=== PATIENT | female | born 1965 | race Caucasian/White ===

== ENCOUNTER 2017-01-23 09:15 | Outpatient (RCR) | payer MEDICARE, OTHER ==
[~2017-01-23 09:15] MED LIST: AMITIZA 8MCG8 MCG PO; AMOXICILLIN875 MG PO; AMPYRA PO; BIRTH; CEFTIN 250250 MG/TAB PO; CYMBALTA 30MG30 MG PO; FLUOXETINE PO; GABAPENTIN PO; IMURAN 50MG TAB50 MG PO; IRON250 MG PO; LEVAQUIN 5500 MG/TA1 PO; LOMOTIL 0.025 M1 TAB PO; MACROBID 1100 MG/CAP PO; NORCO 325 MG-51 TAB PO; OMNICEF 300MG300 MG PO; PREMARIN .3MG0.3 MG PO; PREMARIN0.625 MG PO; PRILOSEC 20MG20 MG PO; PRILOSEC10 MG PO; PROVIGIL200 MG PO; PROZAC 20MG20 MG PO; REGLAN 10MG10 MG/TAB PO; SANCTURA PO; SANTURA PO; SEPTRA DS 8001 TAB PO; TOVIAZ8 MG PO; TRAZODONE150 MG PO; TYSABRI IV; TYSABRI20 MG/ML IV; VITAMIN D50000 I1 PO; WELLBUTRIN PO; XANAX0.25 MG PO; ZOFRAN 4MG T4 MG/TAB PO; ZOFRAN4 MG PO; [UNRECOGNIZED DRUG - REMARK]
== END 2017-02-03 | disposition still patient (30) ==
LOC: WSPT
DX: G35 Multiple sclerosis (principal)
CPT/HCPCS: G8978-GP; G8979-GP; G8987-GO; G8988-GO

== ENCOUNTER 2017-02-10 08:00 | Outpatient (RCR) | payer MEDICARE, OTHER | END 2017-02-12 08:16 | LOC: WSPT 08:00 | DX: G35 Multiple sclerosis (principal) | CPT/HCPCS: G8979-GP; G8980-GP ==

== ENCOUNTER → 2017-03-19 | Outpatient (CLI) | payer MEDICARE, OTHER | LOC: MC.RAD 09:32 | DX: Z12.31 Encounter for screening mammogram for malignant neoplasm of breast (principal); N64.89 Other specified disorders of breast ==

== ENCOUNTER 2017-06-10 11:18 | Day surgery (SDC) | payer MEDICARE, OTHER ==
[2005-07-12 15:37] VITALS: BP 127/84
[~2017-06-10] VITALS: Ht 157.5 cm; Wt 89.6 kg
[2017-06-10] MEDS ORDERED: PROZAC 20MG20 MG PO (11:51)
[2017-06-10] MEDS ORDERED: LEVSIN0.125 M1 PO (11:53)
[2017-06-10] MEDS ORDERED: IMURAN 50MG TAB50 MG PO (12:02)
[2017-06-10] MEDS ORDERED: ESTRACE2 MG PO (12:03)
[2017-06-10] MEDS ORDERED: XANAX .25M0.25 MG/TA PO (12:03)
[2017-06-10] MEDS ORDERED: DESYREL DIVIDO150 M1 PO (12:04)
[2017-06-10] MEDS ORDERED: NEURONTIN800 MG/TAB PO (12:04)
[2017-06-10] MEDS ORDERED: PROAIR HFA0.09 MG/AC IH (12:07)
[2017-06-10] MEDS ORDERED: FLONASEALLERGY NS (12:07)
[2017-06-10] MEDS ORDERED: 00186-0372-20 IH (12:08)
[2017-06-10 12:14] VITALS: BP 112/79; PULSE 64; TEMP 97.8
[2017-06-10] MEDS ORDERED: MIRALAX PA17 GM/Dose PO (13:47)
[2017-06-10 14:04] VITALS: BP 118/63; PULSE 66; TEMP 97.7
[2017-06-10] MEDS ORDERED: PRIL40 PO (14:12)
[2017-06-10 14:15] VITALS: BP 116/56; PULSE 61
[2017-06-10 14:30] VITALS: BP 107/55; PULSE 56
[2017-06-10 14:45] VITALS: BP 114/66; PULSE 55
[2017-06-10 15:09] VITALS: BP 129/68; PULSE 68
== END 2017-06-10 15:10 | disposition home or self-care (01) ==
LOC: SDCO 11:18
DX: K29.70 Gastritis, unspecified, without bleeding (principal); R10.84 Generalized abdominal pain; K21.9 Gastro-esophageal reflux disease without esophagitis; K58.1 Irritable bowel syndrome with constipation; J45.909 Unspecified asthma, uncomplicated; R19.5 Other fecal abnormalities; G47.30 Sleep apnea, unspecified; F41.9 Anxiety disorder, unspecified; F32.9 Major depressive disorder, single episode, unspecified
CPT/HCPCS: OP; J2250; J2405; J3010; J7120

== ENCOUNTER → 2018-01-22 | Outpatient (CLI) | payer MEDICARE, OTHER ==
[~2018-01-22] MED LIST changes: +00186-0372-20 IH; +DESYREL DIVIDO150 M1 PO; +ESTRACE2 MG PO; +FLONASEALLERGY NS; +LEVSIN0.125 M1 PO; +MIRALAX PA17 GM/Dose PO; +NEURONTIN800 MG/TAB PO; +PRIL40 PO; +PROAIR HFA0.09 MG/AC IH; +XANAX .25M0.25 MG/TA PO
== END ==
LOC: COL.VAS 14:12
DX: M79.661 Pain in right lower leg (principal)

== ENCOUNTER → 2018-03-27 | Outpatient (CLI) | payer MEDICARE, OTHER | LOC: MC.RAD 10:16 | DX: N64.4 Mastodynia (principal) | CPT/HCPCS: G0279 ==

== ENCOUNTER → 2019-03-29 | Outpatient (CLI) | payer MEDICARE, OTHER | LOC: MC.RAD 09:57 | DX: Z12.31 Encounter for screening mammogram for malignant neoplasm of breast (principal) ==

== ENCOUNTER → 2019-06-04 | Outpatient (CLI) | payer MEDICARE, OTHER | LOC: COL.VAS 09:25 | DX: Z13.6 Encounter for screening for cardiovascular disorders (principal); Z96.652 Presence of left artificial knee joint; M79.89 Other specified soft tissue disorders ==

== ENCOUNTER → 2020-03-30 | Outpatient (CLI) | payer MEDICARE, OTHER | LOC: MC.RAD 10:20 | DX: Z12.31 Encounter for screening mammogram for malignant neoplasm of breast (principal) ==

== ENCOUNTER 2021-01-16 08:04 | Outpatient (RCR) | payer MEDICARE, OTHER | END 2021-04-16 | disposition home or self-care (01) | LOC: WSST | DX: R13.12 Dysphagia, oropharyngeal phase (principal) ==

== ENCOUNTER → 2021-03-20 | Outpatient (CLI) | payer MEDICARE, OTHER | LOC: COL.RAD 14:30 | DX: R13.12 Dysphagia, oropharyngeal phase (principal) ==

== ENCOUNTER → 2021-04-23 | Outpatient (CLI) | payer MEDICARE, OTHER | LOC: MC.RAD 12:44 | DX: Z12.31 Encounter for screening mammogram for malignant neoplasm of breast (principal) ==

== ENCOUNTER → 2021-07-16 | Outpatient (CLI) | payer MEDICARE, OTHER | LOC: COL.RAD 09:49 | DX: M25.511 Pain in right shoulder (principal) | CPT/HCPCS: J3301; Q9967 ==

== ENCOUNTER → 2021-08-02 | Outpatient (CLI) | payer MEDICARE, OTHER | LOC: COL.RAD 07:08 | DX: K31.84 Gastroparesis (principal); K21.9 Gastro-esophageal reflux disease without esophagitis | CPT/HCPCS: A9541 ==

== ENCOUNTER 2021-12-19 10:02 | Outpatient (RCR) | payer MEDICARE, OTHER ==
[2022-01-04] MEDS ORDERED: LASIX 20MG TABL20 MG PO (08:59)
[2022-01-04] MEDS ORDERED: K-DUR 10 MEQ T10 MEQ PO (08:59)
[2022-01-04] MEDS ORDERED: TOPROL XL 25MG25 MG PO (09:01)
== END 2021-12-30 | disposition home or self-care (01) ==
LOC: WSPT
DX: G35 Multiple sclerosis (principal); R29.6 Repeated falls

== ENCOUNTER 2022-01-08 08:00 | Outpatient (RCR) | payer MEDICARE, OTHER ==
[2005-07-12 15:37] VITALS: BP 127/84
[2022-01-04 08:53] LABS: ALBUMIN 3.7 gm/dL (3.5-5.0); BILIRUBIN,TOTAL 0.3 mg/dL (0.2-1.2); CREATININE, serum 0.7 mg/dL (0.57-1.11); POTASSIUM 4.4 mmol/L (3.5-4.5); TOTAL PROTEIN 6.6 gm/dL (6.2-8.1)
[2022-01-04 09:04] VITALS: BP 92/60; PULSE 51; TEMP 98.5
[2022-01-05 08:00] VITALS: BP 102/55; PULSE 63; TEMP 97.6
[2022-01-06 08:31] VITALS: BP 101/56; PULSE 65; TEMP 97.8
--- NOTE | 2022-01-06 08:33 | NUR ---
PATIENT TO ROOM 13 PER WHEELCHAIR. A&O X 3, NO C/O ACUTE ISSUES. IV SITE TO LEFT HAND, PATENT, WILL DC AFTER THIS DOSE PER PATIENT REQUEST.
[2022-01-07 08:20] VITALS: BP 123/73; PULSE 51; TEMP 98.2
[~2022-01-08] VITALS: Ht 157.5 cm; Wt 90.6 kg
[2022-01-08 07:52] VITALS: BP 128/74; PULSE 54; TEMP 98.4
[~2022-01-08 08:00] MED LIST changes: +K-DUR 10 MEQ T10 MEQ PO; +LASIX 20MG TABL20 MG PO; +TOPROL XL 25MG25 MG PO
--- NOTE | 2022-01-08 13:16 | NUR ---
Pt returned for lab draw.
[2022-01-08 13:43] LABS: ALBUMIN 3.6 gm/dL (3.5-5.0); BILIRUBIN,TOTAL 0.6 mg/dL (0.2-1.2); CALCIUM 8.3 mg/dL (8.4-10.2); CREATININE, serum 0.74 mg/dL (0.57-1.11); POTASSIUM 3.8 mmol/L (3.5-4.5); TOTAL PROTEIN 6.6 gm/dL (6.2-8.1)
== END 2022-01-08 17:36 ==
LOC: EUO 08:00
PROVIDERS: Family Medicine; Psychiatry & Neurology Neurology
DX: G35 Multiple sclerosis (principal)
CPT/HCPCS: J2930; J7050

== ENCOUNTER 2022-01-28 09:45 | Outpatient (RCR) | payer MEDICARE, OTHER | END 2022-01-30 | disposition home or self-care (01) | LOC: WSPT | DX: R29.6 Repeated falls (principal) ==

== ENCOUNTER → 2022-02-27 | Outpatient (CLI) | payer MEDICARE, OTHER | LOC: COL.LAB 12:19 | DX: R19.7 Diarrhea, unspecified (principal) ==

== ENCOUNTER 2022-03-27 09:45 | Outpatient (RCR) | payer MEDICARE, OTHER | END 2022-04-01 | disposition home or self-care (01) | LOC: WSPT | DX: G35 Multiple sclerosis (principal); R29.6 Repeated falls ==

== ENCOUNTER 2022-08-02 11:45 | Outpatient (RCR) | payer MEDICARE, OTHER | END 2022-08-09 08:31 | disposition home or self-care (01) | LOC: WSOT 11:45 | DX: G56.22 Lesion of ulnar nerve, left upper limb (principal); R29.6 Repeated falls ==

== ENCOUNTER 2022-08-28 10:00 | Outpatient (RCR) | payer MEDICARE, OTHER | END 2022-08-30 | disposition home or self-care (01) | LOC: WSOT | DX: G35 Multiple sclerosis (principal); R29.6 Repeated falls ==

== ENCOUNTER → 2023-02-28 | Outpatient (CLI) | payer MEDICARE, OTHER | LOC: MC.RAD 10:36 | DX: N64.4 Mastodynia (principal) ==

== ENCOUNTER 2023-03-24 09:00 | Outpatient (RCR) | payer MEDICARE, OTHER ==
[2005-07-12 15:37] VITALS: BP 127/84
[2023-03-07] VITALS (10 sets, daily range): BP systolic 88–164; BP diastolic 64–104; PULSE 53–68; TEMP 98.3
[2023-03-07 10:23] LABS: BASO % 0.7 % (0.0-2.0); EOS # 0.4 K/mm3 (0.0-0.7); EOS % 7.1 % (0.0-4.0); GRAN # 3.8 K/mm3 (1.4-6.5); HEMATOCRIT 38.2 % (37.0-47.0); HEMOGLOBIN 13.3 g/dl (12.5-16.0); LYMPH # 0.9 K/mm3 (1.2-3.4); MEAN CELL VOLUME 95 fl (80.0-100.0); MEAN CORPUSCULAR HEMOGLOBIN 33 pg (27-31); MEAN CORPUSCULAR HGB CONC 35 g/dl (33.0-37.0); MEAN PLATELET VOLUME 9.7 fl (7.4-10.4); MONO # 0.4 K/mm3 (0.1-0.6); MONO % 7.8 % (1.7-9.3); PLATELET COUNT 180 K/mm3 (130-400); RED BLOOD COUNT 4.04 M/mm3 (4.10-5.30); REDCELL DISTRIBUTION WIDTH-CV 12.7 % (11.5-14.5)
[2023-03-07 10:51] LABS: ALBUMIN 3.7 gm/dL (3.5-5.0); BILIRUBIN,TOTAL 0.4 mg/dL (0.2-1.2); CALCIUM 8.6 mg/dL (8.4-10.2); CREATININE, serum 0.66 mg/dL (0.57-1.11); POTASSIUM 4.3 mmol/L (3.5-4.5); TOTAL PROTEIN 6.4 gm/dL (6.2-8.1)
[2023-03-07 20:53] LABS: IMMUNOGLOBULIN A 87 mg/dL (65-421); IMMUNOGLOBULIN G 819 mg/dL (552-1631); IMMUNOGLOBULIN M, QUANTITATIVE 252 mg/dL (33-293)
[2023-03-24] VITALS (17 sets, daily range): BP systolic 107–141; BP diastolic 48–91; PULSE 50–80; TEMP 97.7
[~2023-03-24] VITALS: Ht 157.5 cm; Wt 93.8 kg
== END 2023-03-24 13:01 | disposition home or self-care (01) ==
LOC: EUO 09:00
PROVIDERS: Family Medicine
DX: G35 Multiple sclerosis (principal)
CPT/HCPCS: J1200; J2350; J2920; J2930; J7050

== ENCOUNTER 2023-08-08 09:31 | Day surgery (SDC) | payer MEDICARE, OTHER ==
[~2023-08-08] VITALS: Ht 157.5 cm; Wt 90.2 kg
[~2023-08-08 09:31] MED LIST changes: +LR 1,000 ML IV SCH; +Ondansetron 4 MG/2 ML VIAL IV PRN
[2023-08-08 11:08] VITALS: BP 138/74; PULSE 65; TEMP 98.5
[2023-08-08] MEDS ORDERED: Ondansetron 4 MG/2 ML VIAL ONE (11:33)
[2023-08-08] MEDS ORDERED: Lidocaine PF 2% (20 MG/ML) 5 ML VIAL ONE (11:39)
[2023-08-08 12:15] VITALS: BP 106/95; PULSE 66; TEMP 98
[2023-08-08 12:30] VITALS: BP 124/70; PULSE 62
--- NOTE | 2023-08-08 12:40 | NUR ---
1215 RETURNS TO ROOM 7 PER CART. AWAKE, ALERT. RESP UNLABORED. STAND TRANSFERS FROM CART TO CHAIR WITH 2 ASSIST. DENIES, NAUSEA, ABD/CHEST PAIN OR DYSPHAGIA. VITAL SIGNS OBTAINED. CALL LIGHT AT SIDE 1225 TOLERATES PO JUICE WITHOUT NAUSEA. SWALLOWS WITHOUT DIFFICULTY. DISCHARGE INSTRUCTIONS REVIEWED. PATIENT VERBALIZES UNDERSTANDING. COPY PROVIDED IN DISCHARGE FOLDER 1228 DR. LOPEZ HERE TO VISIT WITH PATIENT. 1235 DRESSES SELF WITH MINIMAL ASSIST
== END 2023-08-08 12:43 | disposition home or self-care (01) ==
LOC: SDCO 09:31
DX: Z12.11 Encounter for screening for malignant neoplasm of colon (principal); K29.30 Chronic superficial gastritis without bleeding; K21.9 Gastro-esophageal reflux disease without esophagitis; K64.8 Other hemorrhoids; K64.4 Residual hemorrhoidal skin tags; Z80.0 Family history of malignant neoplasm of digestive organs
CPT/HCPCS: 43239; G0105; J2405; J2704; J7120

== ENCOUNTER 2024-03-31 09:45 | Outpatient (CLI) | payer MEDICARE, OTHER ==
[2005-07-12 15:37] VITALS: BP 127/84
[~2024-03-31] VITALS: Ht 157.5 cm; Wt 90.2 kg
[~2024-03-31 09:45] MED LIST changes: +B-121000 MCG PO; +DITROPAN 5MG TAB5 MG PO; +LIORESAL 1010 MG/TAB PO; -LR 1,000 ML IV SCH; +MASON NATURAL2000 IU PO; +NAPROSYN500 MG PO; -Ondansetron 4 MG/2 ML VIAL IV PRN; +PROTONIX 40MG T40 MG PO; +RT ALBUTER2.5 MG/0.5 IH
[2024-03-31 10:36] LABS: BASO % 0.6 % (0.0-2.0); EOS # 0.2 K/mm3 (0.0-0.7); EOS % 3.4 % (0.0-4.0); GRAN % 75.6 % (42.2-75.2); HEMATOCRIT 38.6 % (37.0-47.0); HEMOGLOBIN 13.4 g/dl (12.5-16.0); LYMPH # 0.7 K/mm3 (1.2-3.4); LYMPH % 13.4 % (20.0-51.0); MEAN CELL VOLUME 98 fl (80.0-100.0); MEAN CORPUSCULAR HEMOGLOBIN 34 pg (27-31); MEAN CORPUSCULAR HGB CONC 35 g/dl (33.0-37.0); MEAN PLATELET VOLUME 10.5 fl (7.4-10.4); MONO # 0.4 K/mm3 (0.1-0.6); MONO % 6.8 % (1.7-9.3); PLATELET COUNT 210 K/mm3 (130-400); RED BLOOD COUNT 3.94 M/mm3 (4.10-5.30); REDCELL DISTRIBUTION WIDTH-CV 12.8 % (11.5-14.5)
[2024-03-31] MEDS ORDERED: NS 1,000 ML IV @ 100 ML/HR PRN ALLERGIC REACTION IV (10:45)
[2024-03-31] MEDS ORDERED: EPINEPHrine 0.3 MG/0.3 ML Auto Injector IM PRN (10:45)
[2024-03-31] MEDS ORDERED: ACETAMINOPHEN 325 MG PO (10:45)
[2024-03-31] MEDS ORDERED: Q4H PRN PO (10:45)
[2024-03-31] MEDS ORDERED: methylPREDNISolone Sod Succ 125 MG/2 ML VIAL IV X1 NOW IV ONE (10:45)
[2024-03-31] MEDS ORDERED: ACETAMINOPHEN 325 MG PO ONE (10:45)
[2024-03-31] MEDS ORDERED: DIPHENHYDRAMINE 50 MG PO ONE (10:45)
[2024-03-31] MEDS ORDERED: [UNRECOGNIZED DRUG - OTHER] IV\\IM (10:45)
[2024-03-31] MEDS ORDERED: DIPHENHYDRAMINE 50 MG/ML IV\\IM (10:45)
[2024-03-31 10:49] LABS: ALBUMIN 3.7 g/dL (3.4-4.8); BILIRUBIN,TOTAL 0.4 mg/dL (0.2-1.2); CALCIUM 8.5 mg/dL (8.4-10.2); CREATININE, serum 0.73 mg/dL (0.57-1.11); POTASSIUM 3.9 mEq/L (3.5-4.5); TOTAL PROTEIN 6.5 g/dl (6.2-8.1)
[2024-03-31 10:57] VITALS: BP 129/81; PULSE 50; TEMP 98.4
--- NOTE | 2024-03-31 14:11 | NUR ---
PT TOLERATED INFUSION WELL. VS REMAINED WITHIN NORMAL LIMITS. IV DISCONTINUED UPON DISCHARGE. PT ASSISTED TO MAIN LOBBY VIA WHEELCHAIR. PT FREE FROM ACUTE CONCERNS AND COMPLAINTS UPON DISCHARGE.
[2024-03-31 23:00] LABS: IMMUNOGLOBULIN A 78 mg/dL (69-517); IMMUNOGLOBULIN G 728 mg/dL (552-1631); IMMUNOGLOBULIN M, QUANTITATIVE 124 mg/dL (33-293)
== END 2024-03-31 14:35 | disposition home or self-care (01) ==
LOC: EUO 09:45
PROVIDERS: Family Medicine
DX: G35 Multiple sclerosis (principal)
CPT/HCPCS: J2350; J2919; J7040